=== PATIENT | female | born 1945 | race Caucasian/White ===

== ENCOUNTER 2017-04-23 05:28 | Day surgery (SDC) | payer MEDICARE, OTHER ==
[2017-04-21 09:50] LABS: HEMATOCRIT 40.7 % (36.0-48.0); HEMOGLOBIN 13.8 g/dL (12-16); MCH 31.4 pg (26.0-34.0); MCHC 33.9 g/dL (31.0-37.0); MCV 92.7 fL (80.0-100.0); MEAN PLATELET VOLUME 10.3 fL (7.4-10.4); RBC 4.39 10x6/uL (4.00-5.40); RDW 14.1 % (11.5-14.5); WBC 6.5 10x3/uL (4.8-10.8)
[2017-04-21 09:59] LABS: CALC OSMOLALITY 280 mosm/kg (275-300); CALCIUM 9.3 mg/dL (8.5-10.1); CARBON DIOXIDE 28.4 mmol/L (21.0-32.0); CHLORIDE - SERUM 104 mmol/L (98-107); CREATININE - SERUM 0.4 mg/dL (0.6-1.3); GLUCOSE 141 mg/dL (74-106); POTASSIUM - SERUM 4.8 mmol/L (3.5-5.1); SODIUM 140 mmol/L (136-145); UREA NITROGEN 13 mg/dL (7-18); eGFR NON AFRICAN AMERICAN > 90 mL/min (90-120)
[~2017-04-23] VITALS: Ht 177.8 cm; Wt 92.5 kg
[~2017-04-23 05:28] MED LIST: BUPROPION XL150 MG PO; BYSTOLIC5 MG PO; CYCLOBENZAPRINE10 MG PO; FLUTICASONE PRO16 GM NASAL; GLUCOPHAGE500 MG PO; LEXAPRO10 MG PO; LOPID600 MG PO; NASONEX NASAL S17 GM NS; NEURONTIN 300300 MG PO; NICOTINE PATCH TP; NITROSTAT0.3 MG SL; NORVASC5 MG PO; PREDNISONE20 MG; PROZAC20 MG PO; ULTRAM50 MG PO; ZOCOR40 MG PO; ZYRTEC10 MG PO
[2017-04-23 06:09] VITALS: BP 131/64; Ht 177.8 cm; Wt 92.5 kg
[2017-04-23] MEDS ORDERED: MEPERIDINE HCL50 MG PO (08:17)
--- NOTE | 2017-04-23 10:08 | NUR ---
0930 IV DC WITH CATHER TIP INTACT
--- NOTE | 2017-04-24 10:59 | OP ---
PATIENT NAME: RADHA FRANCES MEDICAL RECORD: [id number] :47 LOCATION:D.OPS ADMISSION DATE: SURGEON: GIL EDWARDS MD DATE OF OPERATION: 04/23/2017 PREOPERATIVE DIAGNOSIS: Ganglion cyst, dorsum of the right hand. POSTOPERATIVE DIAGNOSIS: Ganglion cyst, dorsum of the right hand. PROCEDURE: Excision of ganglion cyst, dorsum right hand. SURGEON: Gil Edwards MD ANESTHESIA: General. INTRAOPERATIVE COMPLICATIONS: None. SUMMARY OF PATHOLOGIC FINDINGS: This is a ganglion cyst of tendon. OPERATIVE SUMMARY IN DETAIL: After obtaining the appropriate preoperative orthopedic surgery consent as well as anesthetic consultation, evaluation and clearance, the patient was brought to the operating room in supine position. The patient placed in supine position. After general laryngeal mask airway was administered, tourniquet was placed about the proximal aspect of the right upper extremity. Right upper extremity was prepped and draped in routine sterile fashion. The arm was elevated and exsanguinated, tourniquet inflated to 350 mmHg. An incision was made directly over the cyst taken down to the level cyst, which was removed in its entirety leaving a small rent in the tendon itself. A single 4-0 Prolene was utilized to fusiform repair of the tendon. The wound was irrigated and closed with 4-0 Prolene in interrupted fashion. The area was locally infiltrated with 0.25% Marcaine with lidocaine. Sterile dressings were applied. Tourniquet was deflated. The patient was awakened, taken to recovery room in stable condition. All final needle and sponge counts were correct. TRANSINT:[id number] Voice Confirmation ID: [id number] DOCUMENT ID: [id number] GIL EDWARDS MD at 1059 CC: [id number] DICTATION DATE: 04/23/17 0819 THIRD MATE: 04/23/17 [id number] [facility] 04/23/[address] [id number]
== END 2017-04-23 10:30 | disposition home or self-care (01) ==
LOC: D.OPS 05:28 → D.PAN 09:55 → D.OPS 10:00
PROVIDERS: Anesthesiology
DX: M67.431 Ganglion, right wrist (principal); F17.200 Nicotine dependence, unspecified, uncomplicated; I10 Essential (primary) hypertension; E11.9 Type 2 diabetes mellitus without complications; G47.30 Sleep apnea, unspecified; Z01.812 Encounter for preprocedural laboratory examination